=== PATIENT | male | born 1960 | race Caucasian/White ===

== ENCOUNTER 2018-12-16 11:34 | Emergency (ER) | payer MEDICARE, OTHER ==
[~2018-12-16] VITALS: Ht 185.4 cm; Wt 84.1 kg
[2018-12-16] MEDS ORDERED: NS 1,000 ML IV ONE (13:00)
[2018-12-16] MEDS ORDERED: ONDANSETRON 4MG/2ML VIAL (J2405) IV ONE (13:00)
[2018-12-16] MEDS: MORPHINE 2 MG/ML 1ML VIAL (J2270) IV PRN ×2 (13:28→14:06)
[2018-12-16] MEDS ORDERED: dexameTHASONE 20 MG/5 ML VIAL (J1100) IV ONE (13:30)
[2018-12-16] MEDS ORDERED: ISOVUE-370 76% 100ML VIAL (Q9967) As Ordered ONE (13:33)
[2018-12-16 13:45] LABS: BASO # 0.1 10^3/uL (0.0-0.2); BASO % 0.3 % (0.0-1.0); EOS % 0.1 % (0.0-3.0); HEMATOCRIT 49.5 % (42.0-52.0); HEMOGLOBIN 16.4 g/dl (13.5-17.5); LYMPH # 1.6 10^3/uL (1.5-5.0); LYMPH % 8.3 % (24.0-44.0); MEAN CORPUSCULAR HEMOGLOBIN 30.4 pg (27.0-33.0); MEAN CORPUSCULAR HGB CONC 33.1 g/dl (32.0-36.5); MEAN CORPUSCULAR VOLUME 91.7 fl (80.0-96.0); MONO # 1.5 10^3/uL (0.0-0.8); MONO % 7.8 % (0.0-5.0); NEUTROPHILS # 15.5 10^3/uL (1.5-8.5); PLATELET COUNT, AUTOMATED 284 10^3/uL (150-450); WHITE BLOOD COUNT 18.7 10^3/uL (4.0-10.0)
[2018-12-16] MEDS ORDERED: AMPICILLIN SOD/SULBACTAM SOD 3 GM in D5W MINI-BAG PLUS 100 ML IV ONE (14:15)
[2018-12-16] MEDS ORDERED: MORPHINE 4 MG/ML 1ML VIAL/SYRINGE (J2270) IV PRN (14:30)
[2018-12-16] MEDS ORDERED: LIDOCAINE W/EPINEPHRINE 1% 20ML VIAL As Ordered ONE (14:32)
[2018-12-16] MEDS ORDERED: LIDOCAINE W/EPINEPHRINE 1% 20ML VIAL SC ONE (14:45)
[2018-12-16 15:17] VITALS: BP 178/98
[2018-12-16] MEDS ORDERED: PERC5TAB12 PO (15:46)
[2018-12-16] MEDS ORDERED: CLEO300C2 PO (15:46)
--- NOTE | 2018-12-16 16:30 | REP ---
Soft-tissue neck CT study with IV contrast: History: Right peritonsillar abscess versus retropharyngeal abscess. No comparisons study. CT contrast dose: 75 ml of intravenous Isovue 370. CT findings: There is marked enlargement right tonsil. There is a large low density lesion occupying most of the volume of the enlarge right tonsil. This displays fairly well defined peripheral enhancement consistent with tonsillar abscess. This low density collection measures 3.5 x 2.5 x 2.5 cm. There is associated compression and deviation of the hypopharyngeal airway. The left tonsillar soft tissues are slightly heterogeneous but no other significant fluid collection is appreciated. There is a hypertrophied anterior cervical lymph node on the right. No other abnormal fluid collection is seen. The visualized paranasal sinuses are clear. No vascular abnormalities observed. Thyroid lobes are normal and symmetric. The lung apices show biapical bullae and some mild emphysematous changes. No bony destructive lesion is appreciated. The visualized paranasal sinuses are clear. Impression: Large right tonsillar abscess, 3.5 centimeters in greatest diameter. There is mild compression and leftward deviation of the hypopharyngeal airway. Electronically Signed by Jovi Carney MD 12/16/2018 06:22 P
--- NOTE | 2018-12-18 11:40 | ER ---
DATE OF SERVICE: 12/16/2018 Patient is a 58-year-old gentleman who presents with a history of swelling in his neck. It started several days ago. He thought it would go away on its own. It is worse on the right side. He has difficulty swallowing. He has no difficulty with breathing. He has not had problems with sore throats in the past. He does smoke a pack of cigarettes per day. Otherwise he is healthy. Examination today shows that he has peritonsillar swelling on the right side with a bit of swelling in his neck. The swelling in his neck is soft. CT scan confirms a peritonsillar abscess on the left side. I infiltrated the area with lidocaine with epinephrine. I then inserted the needle and aspirated 10 mL of mucopurulent fluid. Patient immediately felt better. I then made an incision and then opened the area and drained more pus from the peritonsillar area. The patient tolerated the procedure well. Patient was to receive IV antibiotic therapy and steroids. Patient would be discharged home on oral clindamycin. If his symptoms recurred, then I would see him again in followup as necessary.
== END 2018-12-16 16:07 | disposition home or self-care (01) ==
LOC: M ED 11:34
DX: J36 Peritonsillar abscess (principal)
CPT/HCPCS: 42700; 70491; 80047; 85025; 87040; 87070; 87077; 87186; 87880; 96361; 96365; 96375; 96376; 99284; G0463; J1100; J2270; J2405; Q9967

== ENCOUNTER → 2018-12-16 | Outpatient (REF) | payer OTHER ==
[~2018-12-16] MED LIST: CLEO300C2 PO; PERC5TAB12 PO
== END ==
LOC: M SFHCLERA 11:28
PROVIDERS: ATTEND Physician Assistant
DX: J02.9 Acute pharyngitis, unspecified (principal)